=== PATIENT | female | born 1980 | race Caucasian/White ===

== ENCOUNTER 2019-06-21 21:11 | Emergency (ER) | payer OTHER ==
[~2019-06-21] VITALS: Ht 170.2 cm; Wt 104.3 kg
[2019-06-21 23:10] LABS: BE(vivo) -6.6 mmol/L (-2 to +3); HCO3 18.2 mmol/L (22.0-26.0); PCO2 VENOUS 34.8 mmHg (41.0-51.0); PO2 VENOUS 36.9 mmHg (35.0-45.0)
[2019-06-21 23:17] LABS: ABSOLUTE NEUTROPHILS 8.4 thou/uL (1.4-8.2); BASOPHILS 0.4 % (0.0-2.0); EOSINOPHILS 1.6 % (0.0-3.0); HEMATOCRIT 45.9 % (37.0-47.0); HEMOGLOBIN 15.5 gm/dL (12.0-15.0); LYMPHOCYTES 25.3 % (24.0-44.0); MCH 32.6 pg (26.0-34.0); MCHC 33.9 g/dL (28.0-37.0); MCV 96.1 fL (80.0-100.0); PLATELET COUNT 246 thou/uL (150-400); POLYS 65.7 % (36.0-66.0); RBC 4.77 mil/uL (4.20-5.00); RDW 13.5 % (10.5-14.5); WBC 12.8 thou/uL (4.0-11.0)
[2019-06-21 23:24] LABS: URINE BILIRUBIN NEGATIVE (Negative); URINE BLOOD NEGATIVE (Negative); URINE CLARITY CLEAR; URINE COLOR YELLOW; URINE GLUCOSE-RANDOM* 3+ (Negative); URINE KETONES NEGATIVE (Negative); URINE LEUKOCYTES-REFLEX NEGATIVE (Negative); URINE PROTEIN (DIPSTICK) NEGATIVE (Negative); URINE UROBILINOGEN 0.2 E.U./dl (0.2-1.0)
[2019-06-21 23:25] LABS: CALCIUM 7.8 mg/dL (8.5-10.1); CREATININE 0.8 mg/dL (0.6-1.0); POTASSIUM 3.4 mmol/L (3.5-5.1)
[2019-06-21 23:25] LABS: URINE NITRITE-REFLEX POSITIVE (Negative)
[2019-06-21 23:32] LABS: ALBUMIN 3.4 g/dL (3.4-5.0); TOTAL BILIRUBIN 0.5 mg/dL (<0.1-1.0); TOTAL PROTEIN 6.4 g/dL (6.4-8.2)
[2019-06-21 23:46] LABS: BACTERIA-REFLEX >30 Many /HPF (None Seen); CASTS None Seen /LPF (None Seen); CRYSTALS None Seen /LPF (None Seen); MUCUS None Seen strn/LPF (None Seen); SQUAMOUS 4-10 Moderate /LPF (0-3); URINE RBC None Seen /HPF (0-2); URINE WBC-REFLEX None Seen /HPF (0-5)
[2019-06-22] MEDS ORDERED: KEFLEX500 M1 PO (01:19)
[2019-06-22 02:40] LABS: BE(vivo) -5.5 mmol/L (-2 to +3); HCO3 20.1 mmol/L (22.0-26.0); PCO2 VENOUS 39.5 mmHg (41.0-51.0); PO2 VENOUS 124.6 mmHg (35.0-45.0)
[2019-06-22 02:54] VITALS: BP 144/96
--- NOTE | 2019-06-22 11:31 | EKG ---
[facility] [place] [address] ELECTROCARDIOGRAM REPORT Name: CINDY ÁLVAREZ Room #: DEP [facility]#: [id number] Admission: 06/21/19 Attend Phys: Discharge: 06/22/19 Date of : 84 Report #: [id number] THIS REPORT FOR: cc: RITO - [place] family physician/PCP FAM - No family physician/PCP Zeferino Pandey MD ~ THIS REPORT FOR: //name// [facility] ED Test Date: 2019-06-22 Test Time: 00:52:26 Pat Name: CINDY ÁLVAREZ Department: Room: Gender: Building Wrecker: [place] [id number] : 1980 Requested By: Aaron Shea Order Number: [id number] MD: Zeferino Pandey Measurements Intervals [place] Rate: 78 P: 54 OR: 196 QRS: 65 QRSD: 100 T: 58 QT: 373 QTc: 425 Interpretive Statements Sinus rhythm No previous ECG available for comparison Electronically Signed On 06-22-2019 11:29:52 CDT by Zeferino Pandey [email or web address] <ELECTRONICALLY SIGNED> By: Zeferino Pandey MD 06/22/19 1129 D: 0451 Zeferino Pandey MD /LETICIA
== END 2019-06-22 03:04 | disposition home or self-care (01) ==
LOC: ER 21:11
PROVIDERS: Emergency Medicine
DX: N39.0 Urinary tract infection, site not specified (principal); T58.8X1A Toxic effect of carbon monoxide from other source, accidental (unintentional), initial encounter; R73.9 Hyperglycemia, unspecified; R05 Cough; Z59.0 Homelessness; Y92.89 Other specified places as the place of occurrence of the external cause